=== PATIENT | male | born 1995 | race Asian ===

== ENCOUNTER 2022-05-01 08:48 | Emergency (ER) | payer MEDICAID, OTHER ==
[~2022-05-01] VITALS: Ht 172.7 cm; Wt 73.2 kg
[2022-05-01 08:54] VITALS: BP 131/79
[2022-05-01] MEDS ORDERED: CEPH-556 PO (09:04)
[2022-05-01 09:18] LABS: APPEARANCE,URINE CLEAR (CLEAR); BILIRUBIN,URINE NEGATIVE (NEGATIVE); GLUCOSE, URINE (UA) NEGATIVE (NEGATIVE); KETONES,URINE NEGATIVE (NEGATIVE); LEUKOCYTE ESTERASE ,URINE NEGATIVE (NEGATIVE); NITRATE,URINE NEGATIVE (NEGATIVE); OCCULT BLOOD,URINE NEGATIVE (NEGATIVE); PH,URINE 6.5 (5.0-8.0); PROTEIN,URINE NEGATIVE (NEGATIVE); SPECIFIC GRAVITIY, URINE 1.012 (1.003-1.030); UROBILINOGEN,URINE <=1.0 mg/dL (<=1.0)
[2022-05-01] MEDS ORDERED: LIDOCAINE/PF 1% 2 ML VIAL IM ONE (09:30)
[2022-05-01] MEDS ORDERED: DOXYCYCLINE HYCLATE 100 MG TABLET PO ONE (09:30)
[2022-05-01] MEDS ORDERED: CefTRIAXone SODIUM 1 GM/VIAL IM ONE (09:30)
[2022-05-01] MEDS ORDERED: LEVOFLOXACIN 250 MG TABLET PO ONE (09:30)
[2022-05-01] MEDS ORDERED: DOXY-354 PO (10:11)
[2022-05-01] MEDS ORDERED: CEPH-558 PO (10:12)
== END 2022-05-01 10:31 | disposition home or self-care (01) ==
LOC: EMS 08:52
DX: R30.0 Dysuria (principal)
CPT/HCPCS: 99283; 81003; 87491; 87591; 96372; J0696; J3490